=== PATIENT | male | born 1975 | race Caucasian/White ===

== ENCOUNTER 2020-05-30 11:35 | Emergency (ER) | payer SELFPAY ==
[~2020-05-30] VITALS: Ht 182.9 cm; Wt 106.6 kg
== END 2020-05-30 12:05 | disposition home or self-care (01) ==
LOC: FSED 11:45
DX: H00.013 Hordeolum externum right eye, unspecified eyelid (principal); H57.11 Ocular pain, right eye; F17.210 Nicotine dependence, cigarettes, uncomplicated